=== PATIENT | male | born 1985 | race Caucasian/White ===

== ENCOUNTER 2022-01-22 20:17 | Emergency (ER) | payer SELFPAY ==
[2022-01-22 20:25] VITALS: BP 142/88; PULSE 78; RESP 18; TEMP 36.7; O2SAT 99; BMI 27.1
[2022-01-22 20:39] LABS: Appearance Urine Clear (Clear); Bilirubin Urine Negative (Negative); Blood Urine Negative (Negative); Color Urine Yellow (Yellow); Glucose Urine Negative (Negative); Ketones Urine Negative (Negative); Leukocyte Esterase Urine 1+ (Negative); Nitrite Urine Negative (Negative); Protein Urine Negative (Negative); Specific Gravity Urine 1.025 (1.000-1.030); Urobilinogen Urine 0.2 (0.2-1.0)
[2022-01-22 20:55] LABS: RBC Urine 0-2 (0-2); WBC Urine 25-50 (0-5)
--- NOTE | 2022-01-23 00:06 | ED.NURSE ---
Lab has the urine and will do the GC/Chlam. Dr. Bernal given insty meds for doxycyline 1 tab BID x 7 days. went over allergies and side effects with patient verbalized understanding.
--- NOTE | 2022-01-23 00:46 | ED.GENADULT ---
HPI - General Adult General Date Seen: 01/23/22 Chief complaint: Urogenital Problems, Male Stated complaint: POSSIBLE URETHRITIS Time Seen by Provider: 01/22/22 23:49 Source: patient History of Present Illness HPI narrative: Patient is here with about 3 days of pain with urination. Maybe a little bit of urethral discharge. 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 He does not think he has been taking care of here before. He has been told he should follow up with Urology but he has not historically had insurance. He tells me that he is waiting for insurance to get set up which he says should be happening in the next couple of days according to his boss. After that, he tells me he does plan to see Urology. He denies any new sexual partners. He has not had any abdominal pain, testicular pain, denies any rash or lesions. Has not had any fevers or chills. Otherwise has felt well. Symptoms have been persistent over the past several days, slightly worsening. He says he lets it go for very long it will get significantly worse. He typically takes antibiotics, usually azithromycin or doxycycline, and symptoms resolve. Related Data Home Medications Medication Instructions Recorded Confirmed No Known Home Medications 01/22/22 01/22/22 Allergies Allergy/AdvReac Type Severity Reaction Status Date / Time No Known Drug Allergies Allergy Verified 01/22/22 20:25 Review of Systems Status of ROS: Reports: 10 or more systems reviewed and unremarkable except as noted in History and below [facility] Social History Smoking Status: Former smoker Do you use any of these nicotine containing products: E-Cigarettes and Vaping Products Second hand tobacco smoke exposure: Yes How often do you have a drink containing alcohol: monthly or less How many standard drinks containing alcohol do you have on a typical day: 1 or 2 How often do you have six or more drinks on one occasion: Less than monthly AUDIT-C Alcohol total score: 2 Non-prescribed substance use: denies use service: No Exam Narrative: Exam Narrative: Vital signs as noted above. In general, an alert, well-appearing patient. Head: Normocephalic, atraumatic. Eyes: Pupils are equal reactive. Extraocular movements are full. Conjunctivae are normal. ENT: Mucous membranes are moist. Throat is normal. Neck: Supple without lymphadenopathy. Heart: Regular rate and rhythm. No murmur or rub. Lungs: Clear bilaterally. No increased work of breathing, crackles or wheezes. Abdomen: Soft and nontender. No organomegaly. Extremities: Well perfused. No edema. No calf tenderness. Pulses intact. Neurologic: Patient is alert and oriented to person and place. Speech is fluent. Face is symmetric. Moves all extremities equally. Affect: Normal. Skin: Warm and dry. Well perfused. Const: Vital Signs, click to edit/add: Vital Signs - 24 hr 01/22/22 20:25 Temperature 98.1 F Pulse Rate [Pulse Oximeter] 78 Respiratory Rate 18 Blood Pressure [Ri ght Upper Arm] 142/88 H Pulse Oximetry 99 Oxygen Delivery Me thod Room Air Course Course Hospital Course: UA here shows 25-50 white blood cells, no red cells. GC chlamydia is added on. Given that he has had this many times in the past according to his report, I am treating him with doxycycline and holding off on treatment for gonorrhea. We will wait and see what testing reveals. I have recommend follow-up with Urology and I have given him the phone number. I have recommended that he simply make that appointment as it is likely it will be a couple of months out and hopefully by that time he will have insurance. Return for worsening symptoms, fever, chills, vomiting etcetera. Vital Signs Vital signs: Initial Vital Signs Temperature 98.1 F 01/22/22 20:25 Temperature Source Temporal Artery Scan 01/22/22 20:25 Pulse Rate 78 01/22/22 20:25 Respiratory Rate 18 01/22/22 20:25 Blood Pressure 142/88 H 01/22/22 20:25 Blood Pressure Mean 106 01/22/22 20:25 Blood Pressure Position Sitting 01/22/22 20:25 Pulse Oximetry 99 01/22/22 20:25 Oxygen Delivery Method 01/22/22 20:25 Vital Signs Temperature 98.1 F 01/22/22 20:25 Pulse Rate 78 01/22/22 20:25 Respiratory Rate 18 01/22/22 20:25 Blood Pressure 142/88 H 01/22/22 20:25 Pulse Oximetry 99 01/22/22 20:25 Oxygen Delivery Method 01/22/22 20:25 Temperature 98.1 F 01/22/22 20:25 Pulse Rate 78 01/22/22 20:25 Respiratory Rate 18 01/22/22 20:25 Blood Pressure 142/88 H 01/22/22 20:25 Pulse Oximetry 99 01/22/22 20:25 Oxygen Delivery Method 01/22/22 20:25 Medical Decision Making Lab Data Labs: Lab Results 01/22/22 Range/Units 20:27 Urine Color Yellow (Yellow) Urine Appearance Clear (Clear) Urine pH 7.0 (5.0-8.5) Ur Specific Doran 1.025 (1.000-1.030) Urine Protein Negative (Negative) Urine Glucose (UA) Negative (Negative) Urine Ketones Negative (Negative) Urine Blood Negative (Negative) Urine Nitrite Negative (Negative) Urine Bilirubin Negative (Negative) Urine Urobilinogen 0.2 (0.2-1.0) Ur Leukocyte Esterase 1+ A (Negative) Urine RBC 0-2 (0-2) Urine WBC 25-50 A (0-5) Ur Squamous Epith Cells None (None-Few) Urine Bacteria None (None) Discharge Plan Discharge Clinical Impression: Urethritis Patient Disposition: Home, Self-Care Condition: Stable Additional Instructions: Antibiotics as prescribed. Would recommend Urology follow-up in the near future given repeated bouts of this. Return for new symptoms such as fever, chills, vomiting, or other worsening symptoms. Urology appointment can be made through the [facility], . Prescriptions: No Action No Known Home Medications Follow Up/Referrals: Provider,Not a Local [Primary Care Provider] - Stand Alone Forms: [employer] Info Instructions
[2022-01-23 01:30] LABS: Chlamydia DNA Amplified* NOT DETECTED (No Detected); GC DNA Amplified* NOT DETECTED (No Detected)
== END 2022-01-23 00:04 | disposition home or self-care (01) ==
PROVIDERS: Emergency Provider Emergency Medicine
DX: N34.2 Other urethritis (principal)
CPT/HCPCS: 81001; 87086; 87491; 87591; 99283; 99284